=== PATIENT | female | born 1955 | race Caucasian/White ===

== ENCOUNTER 2020-03-18 15:27 | Inpatient (IN) ==
--- NOTE | 2020-03-18 16:10 | Diag Imaging Result Doc PS360 ---
EXAM: CT HEAD W/O CONTRAST HISTORY: AMS TECHNIQUE: CT head without contrast COMPARISON: 02/22/2020 FINDINGS: No parenchymal hemorrhage. No epidural or subdural hematoma. No subarachnoid hemorrhage. No mass identified on this noncontrasted exam. No hydrocephalus. No sinus opacification. IMPRESSION: No hemorrhage. Negative brain CT without contrast. This exam was performed using automated exposure control, adjustment of mA or kV according to patient size, and/or use of iterative reconstruction technique. Electronically signed by Jimenez Marlow 03/18/2020 4:07 PM
[2020-03-18 16:16] LABS: BASO# 0.01 X1000 (0.0-0.2); BASO% 0.1 % (0.0-0.8); EOS# 0.03 X1000 (0.0-0.7); EOS% 0.2 % (0.0-10.0); HEMATOCRIT 48.6 % (37.0-47.0); HEMOGLOBIN 16.2 g/dL (12.0-16.0); IMM GRAN% 0.7 % (0.0-0.5); LYMPH# 1.36 X1000 (1.2-3.4); LYMPH% 9.6 % (20.5-51.1); MCH 32.9 PG (27-31); MCHC 33.3 g/dL (33-37); MCV 98.6 FL (81-99); MONO# 1.72 X1000 (0.11-0.59); MONO% 12.1 % (1.7-9.3); MPV 10.5 FL (7.4-10.4); NEUT% 77.3 % (42.2-75.2); PLT 159 X1000 (130-400); RBC 4.93 XMIL (4.2-5.4); RDW 12.5 % (11.5-14.5); WBC 14.22 X1000 (4.8-10.8)
--- NOTE | 2020-03-18 16:21 | Diag Imaging Result Doc PS360 ---
EXAM: CHEST-1 VIEW HISTORY: cp TECHNIQUE: Single view COMPARISON: 03/04/2020 FINDINGS: The lungs are well expanded. The heart is not enlarged. The vessels are not distended. There are no infiltrates. No effusion identified. IMPRESSION: Negative exam. Electronically signed by Jmienez Marlow 03/18/2020 4:18 PM
[2020-03-18 16:24] LABS: CK INDEX 2.2 (0.0-2.5); CK-MB 18.19 ng/mL (0.0-5.0)
[2020-03-18 16:29] LABS: ALBUMIN 4.2 g/dL (3.5-5.0); CALCIUM 10.6 mg/dL (8.8-10.2); MAGNESIUM 2.8 mg/dL (1.5-2.7); POTASSIUM 4.5 mmol/L (3.5-5.1); TOTAL BILIRUBIN 0.4 mg/dL (0.20-1.00); TOTAL PROTEIN 7.1 g/dL (6.3-8.3)
[2020-03-18 16:40] LABS: FREE T4 1.19 ng/dL (0.93-1.70); TSH 1.37 uIUmL (0.27-4.20)
[2020-03-18 16:50] LABS: URINE SOURCE CATH
[2020-03-18] MEDS ORDERED: NS 1,000 ML IV ONE (16:52)
[2020-03-18 16:54] LABS: BILIRUBIN URINE NEGATIVE (NEGATIVE); BLOOD URINE NEGATIVE (NEGATIVE); COLOR YELLOW; GLUCOSE URINE NEGATIVE (NEGATIVE); KETONE URINE TRACE mg/dL (NEGATIVE); LEUKOCYTES URINE TRACE (NEGATIVE); NITRITE URINE NEGATIVE (NEGATIVE); PROTEIN URINE 30 mg/dL (NEGATIVE); SP GRAVITY URINE 1.018; TURBIDITY URINE HAZY (CLEAR); UROBILINOGEN URINE NORMAL (NORMAL)
[2020-03-18 16:55] LABS: UR EPITHELIAL CELLS <10 /HPF (<10); URINE BACTERIA NEGATIVE /HPF; URINE RBC <10 /HPF (<10); URINE WBC <10 /HPF (<10)
[2020-03-18 17:02] LABS: UR AMPHETAMINES QUAL NONE DETECTED (NONE DETECT); UR BARBITUATES QUAL NONE DETECTED (NONE DETECT); UR BENZODIAZEPIN QUAL NONE DETECTED (NONE DETECT); UR CANNABINOIDS QUAL NONE DETECTED (NONE DETECT); UR COCAINE QUAL NONE DETECTED (NONE DETECT); UR METHADONE QUAL NONE DETECTED (NONE DETECT); UR METHAMPHETAMINE QUAL NONE DETECTED (NONE DETECT); UR OPIATES QUAL NONE DETECTED (NONE DETECT); UR OXYCODONE QUAL NONE DETECTED (NONE DETECT); UR PCP QUAL NONE DETECTED (NONE DETECT); UR PROPOXYPHENE QUAL NONE DETECTED (NONE DETECT); UR TCA QUAL NONE DETECTED (NONE DETECT)
--- NOTE | 2020-03-18 17:38 | EKG Report ---
Test Performed on : 03/18/2020 4:42:34 PM Test Reason : cp Blood Pressure : / mmHG Vent. Rate : 097 BPM Atrial Rate : 097 BPM P-R Int : 126 ms QRS Dur : 084 ms QT Int : 370 ms P-R-T Axes : 043 -27 059 degrees QTc Int : 469 ms Normal sinus rhythm. Nonspecific T wave abnormality Abnormal ECG When compared with ECG of 22-FEB-2020 06:12, (Unconfirmed) T wave inversion now evident in Lateral leads QT has lengthened Unconfirmed Result
--- NOTE | 2020-03-18 17:47 | PROVIDER DOCUMENTATION ---
This chart was entered by Kelli Florian Scribe, acting as scribe for Raul Schultz CRNP. HPI-General Adult - General Chief Complaint: Altered Mental Status Stated Complaint: UNRESPONSIVE/AMS Time Seen by Provider: 03/18/20 15:30 Source: other ([facility] staff) Unable to obtain history due to:: other (pt non verbal) Allergies/Adverse Reactions: Patient Allergies Allergy/AdvReac Type Severity Reaction Status Date / Time No Known Allergies Allergy Verified 02/19/20 22:11 Home Medications: Home Medication List Medication Instructions Recorded Confirmed Last Taken Type Quetiapine Fumarate [Seroquel] 100 mg PO HS PRN 10/01/16 02/22/20 Unknown History Famotidine [Pepcid AC] 1 tab PO DAILY PRN PRN 02/22/20 02/22/20 Unknown History Oseltamivir [Tamiflu] 75 mg PO BID #10 cap 03/04/20 Unknown Rx - History of Present Illness -Gen Adult Nature of Presenting Problems: pt is a 64 yr old female presenting from [facility] with report of increased lethargy, staff reports pt dx with flu 2 weeks ago and since that time has had more "spells" of lethargy, pt has been fever free x 1 week. staff reports pt has been taking her medications as normal. pt hx of non verbal spells. pt follows commands, is alert to self, makes appropriate eye contact but does not speak Similar Symptoms Previously?: Yes Recently seen or treated by another doctor?: Yes Review of Systems - Adult - REVIEW OF SYSTEMS - ADULT ROS:: limited per condition (pt non verbal, report from [facility] staff) Constitutional: reports: see HPI, fatique Eyes: reports: no symptoms reported Ears, Nose, Mouth & Throat: reports: no symptoms reported Cardiovascular: reports: no symptoms reported Respiratory: reports: no symptoms reported. denies: dyspnea on exertion, shortness of breath, wheezing Gastrointestinal: reports: no symptoms reported Genitourinary: reports: no symptoms reported Musculoskeletal: reports: no symptoms reported Integumentary: reports: no symptoms reported Neurological: reports: see HPI, other (non-verbal at times). denies: dizziness/vertigo, headache/migraines Psychiatric: reports: see HPI, anxiety, depression, emotional problems Endocrine: reports: no symptoms reported Hematologic/Lymphatic: reports: no symptoms reported Allergic/Immunologic: reports: no symptoms reported All Other Systems: Reviewed and Negative Past History - Adult - PAST MEDICAL HISTORY-ADULT Review of Records: reports: Old Records Reviewed, Nursing Assessment Review, Medications Reviewed, Social history reviewed & non-contributory. Major Childhood Illnesses: reports: denies history Cardiovascular: reports: denies history Respiratory: reports: denies history Gastrointestinal: reports: denies history, GERD Obstetrical/Gynecological: reports: denies history Genitourinary: reports: denies history Musculoskeletal: reports: denies history Neurological: reports: denies history Psychiatric: reports: bipolar Endocrine/Immune: reports: denies history Other Conditions: reports: denies history - IMMUNIZATION STATUS Childhood Immunizations: See Nurse Assessment Flu Vaccine: See Nurse Assessment - FAMILY HISTORY Family History: reviewed, not pertinent - SOCIAL HISTORY 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[facility]) Physical Exam-General - PHYSICAL EXAM-ADULT Initial Vital Signs Reviewed: Yes - CONSTITUTIONAL General Appearance: alert, no apparent distress, other (non verbal) - EYES Eyes: PERRL/EOMI - HEAD, EARS, NOSE, MOUTH & THROAT HENMT: normocephalic/atraumatic, moist mucous membranes, normal ENT inspection - NECK Neck: non-tender, full range of motion, supple, normal inspection - RESPIRATORY Respiratory: lungs clear, normal breath sounds, no respiratory distress, no accessory muscle use - CARDIOVASCULAR Cardiovascular: normal peripheral pulses, regular rate, rhythm - GASTROINTESTINAL (ABDOMEN) Abdominal Exam: normal bowel sounds, non tender, soft - LYMPHATIC Lymphatic: no adenopathy - MUSCULOSKELETAL Back Exam: normal inspection Extremity: normal range of motion, non-tender, normal inspection - SKIN Integumentary: normal color, normal turgor, warm/dry - NEUROLOGIC Neurologic: grossly normal, no motor/sensory deficits. negative: focal weakness, motor weakness, sensory deficit - PSYCHIATRIC Psych/Mental Status: other (pt is alert to person, non verbal, follows commands) Progress - PLAN OF CARE/RESULTS Result Diagrams: 03/18/20 15:30 03/18/20 15:30 - XRAY 1 XRAY Study: Chest Impression: See EMR Report (FINDINGS: The lungs are well expanded. The heart is not enlarged. The vessels are not distended. There are no infiltrates. No effusion identified. IMPRESSION: Negative exam.) - CT/MRI 1 CT Study: Head Impression: See EMR Report ( FINDINGS: No parenchymal hemorrhage. No epidural or subdural hematoma. No subarachnoid hemorrhage. No mass identified on this noncontrasted exam. No hydrocephalus. No sinus opacification. IMPRESSION: No hemorrhage. Negative brain CT without contrast.) - CONSULTS/PCP/HOSPITALIST Notification #1 *Consult/PCP/Hospitalist*: Dr Ovalle Time Discussed: 17:44 Reason/Comments: AMS, Leukocytosis, ARF Consult Disposition: Admit Departure - Departure Date of Disposition Decision: 03/18/20 Time of Disposition Decision: 17:44 DIAGNOSIS: AMS (altered mental status), Leukocytosis, Acute renal failure (ARF) Disposition: ADMITTED INPATIENT 09 Certified Medical Emergency: Emergent Condition: Critical Additional Instructions: ED Follow Up Instructions: You have been treated by a care provider in the Emergency Department. These instructions are being provided to you so you can have an understanding of how to care for yourself upon discharge. Upon discharge from the Emergency Department, you are responsible for making arrangements for follow-up care by a physician of your choice. Take all prescribed medications as directed. Return to the Emergency Department immediately for any new or worsening symptoms. You may call the Physician Referral phone number at [phone] to obtain a list of Physicians who are taking new patients. Referrals and Follow-Ups: None,PCP [Primary Care Provider] - - Critical Care Note This patient required my direct & personal management of CC.: No Attestation - Physician/ SOFY Attestation Patient care was provided by Advanced Practice Provider:: Yes Advanced Practice Provider:: Raul Schultz Advanced Practice Provider documentation review:: The Mid-level provider documentation, treatment plan and medical decision making was reviewed by the physician who agrees with all treatment and medical decision making by the P. The physician spent face to face time with patient:: Yes Advanced Practice Provider documentation review:: Supervising physician onsite and consulted in the evaluation and care of this patient. The physician did have a face to face encounter with the patient. This chart was documented by the indicated scribe, (Kelli Florian Scribe) and accurately reflects the services I performed and decisions made by me, Raul Schultz CRNP, as attested by the provider's signature.
--- NOTE | 2020-03-18 18:21 | HISTORY AND PHYSICAL ---
PRIMARY CARE PHYSICIAN: Listed as none. CHIEF COMPLAINT: Was found at [facility] with increased lethargy. HISTORY OF PRESENTING ILLNESS: This is a 64-year-old female who presents to [facility] ER from [facility] with reports of increased lethargy staff reported that the patient was diagnosed with the flu 2 weeks ago and had more spells of lethargy but had been fever free for 1 week. Had been taking her medications. Would follow commands, is alert to self and makes appropriate eye contact, but does not speak. It appears on her urine culture from 03/15/2020, she grew out a Proteus mirabilis. Urinalysis at this time is clear. White count of 14.22. Her BUN is 50 with a creatinine of 2, which is an increase slightly from her baseline that appears to be from 1.2 to 1.5. Her creatine kinase was 816, CK-MB of 18.19. Troponin T has a sensitivity of 93. Chest x-ray showed a negative exam. Head CT showed no hemorrhage and a negative brain CT without contrast. So, she will be admitted to the medical unit for further evaluation and treatment. PAST MEDICAL HISTORY: Hypertension and manic depression. PAST SURGICAL HISTORY: None. FAMILY HISTORY: No tobacco alcohol or illicit drug use. ALLERGIES: She has no known drug allergies. HOME MEDICATIONS: We will need to obtain a list, reconcile, review, and restart as appropriate. We will place an order for nursing to update and confirm home medications. LABORATORY DATA: Showed a white blood cell count of 14.22, hemoglobin 16.2, hematocrit 48.6, platelets 159,000. Sodium 136, potassium 4.5, chloride 95, CO2 22, BUN of 50, creatinine 2.0, glucose 106, magnesium 2.8, creatine kinase of 816, CK-MB of 18.19, troponin T high-sensitivity of 93. TSH of 1.37, free T4 1.19. Urinalysis is negative. It is noted she had a urine culture on 03/15/2020 that grew out a Proteus mirabilis. Urine drug screen showed none detected. Valproic acid level of 46.60. Head CT showed no hemorrhage and a negative brain CT without contrast and a chest x-ray that was a negative exam. EKG with normal sinus rhythm at 97. REVIEW OF SYSTEMS: Unable to obtain from patient at this time. PHYSICAL EXAMINATION: This 64-year-old female on arrival had a temperature of 98.1 degrees, pulse 104, respirations 24, blood pressure 110/74. HEENT: Normocephalic, atraumatic. Normal ENT inspection. Oropharynx and nares are clear. EYES: Pupils are equal, round, reactive to light and accommodation. Extraocular movements are intact. NECK: Normal inspection. Normal range of motion. LUNGS: Clear to auscultation bilaterally with equal lung expansion and chest wall movement. HEART: Regular rate and rhythm. No murmurs, rubs, or gallops. ABDOMEN: Soft, nontender, nondistended. Bowel sounds are present x4 quadrants. MUSCULOSKELETAL: She has 5/5 strength x4 extremities. NEUROLOGICAL: The cranial nerves 2-12 appear grossly intact. ASSESSMENT: 1. Altered mental status. 2. An acute on chronic kidney disease. 3. Leukocytosis with a recent Proteus mirabilis urine culture on 03/15/2020. 4. Rhabdomyolysis. PLAN: She will be admitted to the medical unit placed on telemetry, regular diet, Zosyn 3.375 g IV q.6, normal saline at 75 mL an hour, Zofran 4 mg IV q.[address] hours [address]. We will place sequential compression devices for deep vein thrombosis prophylaxis. Update and confirm home medications and we will check serial cardiac enzymes q.8h x3 and recheck a CBC and BMP in the a.m. Further orders after seen by attending. Dictated by ARI Zamora for Jeremy Ovalle MD cc: ARI Zamora MD
--- NOTE | 2020-03-18 18:39 | HISTORY AND PHYSICAL ---
ADDENDUM: Patient was at [facility], had increased lethargy and increased confusion. She was initially given IV fluids in the ER. Does appear to be waking up a little bit better. Recently had a UTI with Proteus mirabilis. We are going to admit to the hospital, place her on fluids. She does have an elevated BUN, mildly increased CK at 800 and an elevated creatinine over her baseline. She is awake but does not answer questions nor follow commands. She is in no current respiratory distress and vital signs reviewed. Please see full note. cc: Jeremy Ovalle MD
[2020-03-18] MEDS ORDERED: TYLENOL PO PRN (21:01)
[2020-03-18] MEDS ORDERED: ZOFRAN IV PRN (21:01)
[2020-03-18] MEDS: ZOSYN 3.375 GM in NS 50 ML IV SCH (22:01)
[2020-03-18] MEDS: NS 1,000 ML IV SCH (22:05)
[2020-03-18 23:08] LABS: CK INDEX 1.7 (0.0-2.5); CK-MB 15.54 ng/mL (0.0-5.0)
[2020-03-19] MEDS: ZOSYN 3.375 GM in NS 50 ML IV SCH ×4 (04:27→21:02)
[2020-03-19 04:54] LABS: BASO# 0.01 X1000 (0.0-0.2); BASO% 0.1 % (0.0-0.8); EOS# 0.03 X1000 (0.0-0.7); EOS% 0.3 % (0.0-10.0); HEMATOCRIT 44.7 % (37.0-47.0); HEMOGLOBIN 14.4 g/dL (12.0-16.0); IMM GRAN# 0.05 X1000 (0.0-0.04); IMM GRAN% 0.5 % (0.0-0.5); LYMPH# 0.43 X1000 (1.2-3.4); LYMPH% 4.3 % (20.5-51.1); MCH 33.1 PG (27-31); MCHC 32.2 g/dL (33-37); MCV 102.8 FL (81-99); MPV 10.5 FL (7.4-10.4); NEUT# 8.53 X1000 (1.4-6.5); NEUT% 84.8 % (42.2-75.2); PLT 87 X1000 (130-400); RBC 4.35 XMIL (4.2-5.4); RDW 12.5 % (11.5-14.5); WBC 10.05 X1000 (4.8-10.8)
[2020-03-19 05:07] LABS: CALCIUM 9.4 mg/dL (8.8-10.2); CREATININE 1.7 mg/dL (0.5-0.9); POTASSIUM 4.5 mmol/L (3.5-5.1)
[2020-03-19 05:26] LABS: CK INDEX 1.4 (0.0-2.5); CK-MB 9.9 ng/mL (0.0-5.0)
[2020-03-19 12:40] LABS: INR 1.08; PROTIME 14.6 Seconds (11.0-16.0)
[2020-03-19 12:51] LABS: ALBUMIN 3.3 g/dL (3.5-5.0); CALCIUM 8.8 mg/dL (8.8-10.2); CREATININE 1.5 mg/dL (0.5-0.9); POTASSIUM 4.1 mmol/L (3.5-5.1); TOTAL BILIRUBIN 0.6 mg/dL (0.20-1.00); TOTAL PROTEIN 5.5 g/dL (6.3-8.3)
[2020-03-19] MEDS: NS 1,000 ML IV SCH (12:52)
[2020-03-19 12:57] LABS: BASO# 0.01 X1000 (0.0-0.2); BASO% 0.1 % (0.0-0.8); EOS# 0.04 X1000 (0.0-0.7); EOS% 0.5 % (0.0-10.0); HEMATOCRIT 42.3 % (37.0-47.0); HEMOGLOBIN 13.4 g/dL (12.0-16.0); IMM GRAN# 0.02 X1000 (0.0-0.04); IMM GRAN% 0.3 % (0.0-0.5); LYMPH# 0.39 X1000 (1.2-3.4); LYMPH% 5.1 % (20.5-51.1); MCH 32.3 PG (27-31); MCHC 31.7 g/dL (33-37); MCV 101.9 FL (81-99); MONO# 0.67 X1000 (0.11-0.59); MONO% 8.8 % (1.7-9.3); MPV 10.3 FL (7.4-10.4); NEUT# 6.52 X1000 (1.4-6.5); NEUT% 85.2 % (42.2-75.2); PLT 117 X1000 (130-400); RBC 4.15 XMIL (4.2-5.4); RDW 12.4 % (11.5-14.5); WBC 7.65 X1000 (4.8-10.8)
[2020-03-19 13:09] LABS: CK INDEX 1.3 (0.0-2.5); CK-MB 6.02 ng/mL (0.0-5.0)
[2020-03-19 13:18] LABS: LYMPHS 8 % (21-51); MONO 5 % (1-9); SEGS 87 % (42-75)
--- NOTE | 2020-03-19 13:27 | PROGRESS NOTE ---
DATE: 03/19/2020 SUBJECTIVE: The patient is a little bit more awake. Reported that she came from [facility] to this hospital . Denies any complaints at this time. OBJECTIVE: Vital Signs: Temperature 98.4, heart rate 98, respiratory rate 20, blood pressure 134/81, O2 saturation 91% on room air. General Examination: This is a chronically ill-looking, 64-year-old, female lying in bed, in no acute distress. Cardiovascular Examination: S1 and S2 heard. No murmurs, gallops, or rubs. Regular rate and rhythm. Respiratory Examination: Clear bilaterally to auscultation. No work of breathing or using accessory muscles. Abdomen: Soft, nontender to palpation. Bowel sounds present. No organomegaly. Extremities: No clubbing, cyanosis, or edema. Peripheral pulses present in both legs. Neurological Examination: The patient is a little bit sleepy but awakes to verbal stimuli. Moves 4 extremities spontaneously. Laboratory Data: White cell count 10.05, hemoglobin 14.4, hematocrit 44.7, platelets 87,000. BMP that reveals creatinine 1.5. ASSESSMENT AND PLAN: 1. Metabolic encephalopathy. The reason is not clear. In any case, it is improving. At this point, we will continue to monitor this patient closely here in the hospital. 2. Acute on chronic kidney disease. Creatinine is improving from 2.2 to 1.7. We will continue to monitor. 3. Urinary tract infection secondary to Proteus. We will continue with current antibiotic management; in this case, it is Zosyn. We will adjust the dose of this medication according to the urine culture. 4. Rhabdomyolysis. We will continue with intravenous fluids. We will continue to monitor CK daily. cc: Pio Rosario MD [facility]
--- NOTE | 2020-03-19 13:36 | Diag Imaging Result Doc PS360 ---
EXAM: CHEST-1 VIEW - 03/19/2020 HISTORY: News bundle standing order TECHNIQUE: Portable one view chest COMPARISON: 03/18/2020 FINDINGS: Heart size appears within normal limits. The lungs appear clear. There is no pleural effusion or pneumothorax identified. IMPRESSION: No evidence of acute disease. Electronically signed by Dion [employer] Medianicholas 03/19/2020 1:33 PM
[2020-03-19 13:57] LABS: CK INDEX 1.3 (0.0-2.5); CK-MB 6.38 ng/mL (0.0-5.0)
--- NOTE | 2020-03-19 16:08 | ED EKG INTERP ---
This chart was entered by Kelli Florian Scribe, acting as scribe for Tammie Kingston MD. EKG Interpretation - EKG Time of EKG reading by physician:: 16:42 EKG Read and Signed by:: Tammie Kingston EKG Interpretation (*Must complete 3 of following elements*): Abnormal Rate: 97 Rhythm: nsr [place]: normal QRS: normal ID Interval: normal ST Wave: non-specific ST changes Attestation - Physician/ SOFY Attestation Patient care was provided by Advanced Practice Provider:: Yes Advanced Practice Provider:: Raul Schultz Advanced Practice Provider documentation review:: The Mid-level provider documentation, treatment plan and medical decision making was reviewed by the physician who agrees with all treatment and medical decision making by the P. The physician spent face to face time with patient:: Yes Advanced Practice Provider documentation review:: Supervising physician onsite and consulted in the evaluation and care of this patient. The physician did have a face to face encounter with the patient. This chart was documented by the indicated scribe, (Kelli Florian Scribe) and accurately reflects the services I performed and decisions made by Thee moctezuma Mai Huu, MD, as attested by the provider's signature.
[2020-03-20] MEDS: NS 1,000 ML IV SCH ×2 (04:15→19:08)
[2020-03-20] MEDS: ZOSYN 3.375 GM in NS 50 ML IV SCH ×4 (04:15→21:45)
[2020-03-20 12:22] LABS: BASO# 0.01 X1000 (0.0-0.2); BASO% 0.1 % (0.0-0.8); EOS# 0.06 X1000 (0.0-0.7); EOS% 0.7 % (0.0-10.0); HEMATOCRIT 46.5 % (37.0-47.0); HEMOGLOBIN 14.8 g/dL (12.0-16.0); IMM GRAN# 0.04 X1000 (0.0-0.04); IMM GRAN% 0.5 % (0.0-0.5); LYMPH# 0.44 X1000 (1.2-3.4); MCH 32.5 PG (27-31); MCHC 31.8 g/dL (33-37); MONO# 0.52 X1000 (0.11-0.59); MONO% 5.9 % (1.7-9.3); MPV 10.2 FL (7.4-10.4); NEUT# 7.73 X1000 (1.4-6.5); NEUT% 87.8 % (42.2-75.2); PLT 97 X1000 (130-400); RBC 4.56 XMIL (4.2-5.4); RDW 12.4 % (11.5-14.5)
[2020-03-20 12:39] LABS: ALBUMIN 3.5 g/dL (3.5-5.0); CALCIUM 9.4 mg/dL (8.8-10.2); CREATININE 1.4 mg/dL (0.5-0.9); PHOSPHORUS 3.3 mg/dL (2.7-4.5); POTASSIUM 4.6 mmol/L (3.5-5.1)
[2020-03-20 13:16] LABS: LYMPHS 5 % (21-51); MONO 6 % (1-9); SEGS 87 % (42-75)
--- NOTE | 2020-03-20 13:36 | PROGRESS NOTE ---
DATE: 03/20/2020 SUBJECTIVE: Patient is a little more awake although she still has confusion. The patient came from [facility] because of encephalopathy. OBJECTIVE: Vital Signs: Temperature 97.9 degrees, heart rate 111, respiratory rate 20, blood pressure 150/83. O2 saturation 97% 2 L nasal cannula. General: This is a chronically ill- looking, 64-year-old female lying in bed, in no acute distress. Cardiovascular: S1, S2 heard. No murmurs, gallops, or rubs. Regular rate and rhythm. Respiratory: Clear bilaterally to auscultation. No work of breathing or using accessory muscles. Abdomen: Soft, nontender to palpation. Bowel sounds present. No organomegaly. Extremities: No clubbing, cyanosis, or edema. Peripheral pulses present in all legs. Neurological: The patient is sleepy but awakes to verbal stimuli. Moves 4 extremities spontaneously. LABORATORY DATA: White cell count 8.8, hemoglobin 14.8, hematocrit 46.5, platelets 97,000 and BMP reveals creatinine of 1.4. Sodium 147. ASSESSMENT/PLAN: 1. Metabolic encephalopathy. I think it is probably related to medication. She is still confused but definitely better in comparing with yesterday. We will continue to monitor this patient closely. 2. Acute on chronic kidney disease. Creatinine continues to improve. Yesterday was 1.72, today is 1.5. We will continue to monitor. 3. Urinary tract infection secondary to Proteus. The urine culture here returned no growth but we will provide 10 days of antibiotics while in the hospital, we will continue with Zosyn. 4. Rhabdomyolysis. We will continue with IV fluids. 5. Physical deconditioning. We will consult PT/OT for this patient. We will see what they have to say. cc: Pio Rosario MD
[2020-03-20] MEDS ORDERED: NS 50 ML ONE (15:25)
[2020-03-21] MEDS: ZOSYN 3.375 GM in NS 50 ML IV SCH ×3 (04:02→16:04)
[2020-03-21 06:21] LABS: BASO# 0.01 X1000 (0.0-0.2); BASO% 0.1 % (0.0-0.8); EOS# 0.06 X1000 (0.0-0.7); EOS% 0.7 % (0.0-10.0); HEMATOCRIT 44.9 % (37.0-47.0); HEMOGLOBIN 14.3 g/dL (12.0-16.0); IMM GRAN# 0.06 X1000 (0.0-0.04); IMM GRAN% 0.7 % (0.0-0.5); LYMPH# 0.47 X1000 (1.2-3.4); LYMPH% 5.1 % (20.5-51.1); MCH 32.3 PG (27-31); MCHC 31.8 g/dL (33-37); MCV 101.4 FL (81-99); MONO# 0.69 X1000 (0.11-0.59); MONO% 7.5 % (1.7-9.3); MPV 10.5 FL (7.4-10.4); NEUT# 7.93 X1000 (1.4-6.5); NEUT% 85.9 % (42.2-75.2); PLT 119 X1000 (130-400); RBC 4.43 XMIL (4.2-5.4); RDW 12.3 % (11.5-14.5); WBC 9.22 X1000 (4.8-10.8)
[2020-03-21 06:24] LABS: ALBUMIN 3.6 g/dL (3.5-5.0); CALCIUM 9.3 mg/dL (8.8-10.2); CREATININE 1.2 mg/dL (0.5-0.9); PHOSPHORUS 3.2 mg/dL (2.7-4.5); POTASSIUM 3.9 mmol/L (3.5-5.1)
[2020-03-21 08:39] LABS: EOS 1 % (1-10); LYMPHS 5 % (21-51); MONO 3 % (1-9); SEGS 91 % (42-75)
[2020-03-21] MEDS: NS 1,000 ML IV SCH (10:32)
--- NOTE | 2020-03-21 12:14 | DISCHARGE SUMMARY ---
ADMISSION DATE: 03/18/2020 DISCHARGE DATE: 03/21/2020 PRIMARY CARE PHYSICIAN: Listed as none. ADMISSION DIAGNOSES: 1. Altered mental status. 2. [id number] kidney disease. 3. Leukocytosis with a recent Proteus mirabilis urine culture on 03/15/2020. 4. Rhabdomyolysis. DISCHARGE DIAGNOSES: 1. Metabolic encephalopathy, improved. 2. Cwwxn-dl-eilmouu kidney disease, improved. 3. Proteus mirabilis urinary tract infection. 4. Rhabdomyolysis, improved. 5. Physical deconditioning. SUMMARY OF FINDINGS: This is a 64-year-old female, who presented to the emergency room from [facility] with reports of increased lethargy, had been diagnosed 2 weeks prior with the flu and had more spells of lethargy but have been fever free for a week, had been taken all her medications, would follow commands and was alert to self, but would not speak. It was noted that her urine culture from 03/15/2020 grew out a Proteus mirabilis. Urinalysis at this time was clear. Her white count was 14.22. She had a creatinine of 2, which was a slight increase from her baseline of 1.2 to 1.5. Creatine kinase of 816. Troponin T high-sensitivity was 93. Chest x-ray was clear. A CT of the brain showed no hemorrhage and a negative brain CT without contrast. She was admitted, placed on Zosyn 3.375 g IV q.6, IV hydration. We checked serial cardiac enzymes. She has improved and it is now felt that she can safely be discharged back to [facility], who has accepted her for readmission there. DISCHARGE MEDICATIONS: Will include Keflex 500 mg p.o. q.8 hours, Blistex medicated huerta balm topically p.r.n., famotidine 10 mg p.o. daily p.r.n., Prolixin 5 mg p.o. at bedtime and 2.5 mg IM b.i.d., lisinopril 20 mg p.o. daily, Milk of Magnesia 30 mL p.o. p.r.n., Stratton-3 with fish oil 1 capsule p.o. at bedtime, Senokot 2 tablets p.o. daily p.r.n., Depakene liquid 250 mg p.o. b.i.d. FOLLOWUP: She will have discharge followup after she has completed her treatment at [facility] and they will set that up at that time. TIME SPENT: A 35 minute discharge. Dictated by ARI Zamora for Pio Rosario MD Addendum: Patient seen and examined by myself. Agree with ARI note. It reflects my assessment and plan. Patient is being discharged in stable condition . Will be seen by psychiatrist at [facility]. cc: ARI Zamora MD [facility]
[2020-03-21 15:42] VITALS: BP 148/68
== END 2020-03-21 16:10 | DRG 92 ==
LOC: P.ED 15:27 → P.MEDSURG 21:57 → SUATTDRO 21:57
PROVIDERS: ATTEND Internal Medicine

== ENCOUNTER 2020-03-21 17:22 | Inpatient (IN) ==
[2020-03-21] MEDS ORDERED: NS 1,000 ML IV ONE (17:27)
[2020-03-21 18:02] LABS: BLOOD TYPE ARTERIAL; HCO3-(ACT) 24.8 mmoll (20.0-26.0); O2(CT) 20.4 mL/dL (15.0-23.0); O2HB 94.8 % (95.0-99.0); PCO2(98.6) 36 mmHg (35-45); PO2(98.6) 79 mmHg (60-100); SAMPLE BLOOD; SAO2 97.6 % (95.0-100.0); THB 15.3 g/dL (11.5-17.4); pH(98.6) 7.43 (7.35-7.45)
[2020-03-21 18:04] LABS: ALLEN TEST YES; MODALITY CANNULA
[2020-03-21 18:26] LABS: URINE SOURCE CATH
[2020-03-21 18:29] LABS: BASO# 0.01 X1000 (0.0-0.2); BASO% 0.1 % (0.0-0.8); EOS# 0.02 X1000 (0.0-0.7); EOS% 0.2 % (0.0-10.0); HEMATOCRIT 46.7 % (37.0-47.0); HEMOGLOBIN 15.1 g/dL (12.0-16.0); IMM GRAN# 0.07 X1000 (0.0-0.04); IMM GRAN% 0.7 % (0.0-0.5); LYMPH# 0.48 X1000 (1.2-3.4); LYMPH% 4.8 % (20.5-51.1); MCH 32.7 PG (27-31); MCHC 32.3 g/dL (33-37); MCV 101.1 FL (81-99); MPV 10.5 FL (7.4-10.4); NEUT% 88.2 % (42.2-75.2); PLT 121 X1000 (130-400); RBC 4.62 XMIL (4.2-5.4); RDW 12.5 % (11.5-14.5); WBC 10.08 X1000 (4.8-10.8)
[2020-03-21 18:37] LABS: UR AMPHETAMINES QUAL NONE DETECTED (NONE DETECT); UR BARBITUATES QUAL NONE DETECTED (NONE DETECT); UR BENZODIAZEPIN QUAL NONE DETECTED (NONE DETECT); UR CANNABINOIDS QUAL NONE DETECTED (NONE DETECT); UR COCAINE QUAL NONE DETECTED (NONE DETECT); UR METHADONE QUAL NONE DETECTED (NONE DETECT); UR METHAMPHETAMINE QUAL NONE DETECTED (NONE DETECT); UR OPIATES QUAL NONE DETECTED (NONE DETECT); UR OXYCODONE QUAL NONE DETECTED (NONE DETECT); UR PCP QUAL NONE DETECTED (NONE DETECT); UR PROPOXYPHENE QUAL NONE DETECTED (NONE DETECT); UR TCA QUAL NONE DETECTED (NONE DETECT)
[2020-03-21 18:44] LABS: INR 1.13; PROTIME 15.1 Seconds (11.0-16.0)
--- NOTE | 2020-03-21 18:44 | PROVIDER DOCUMENTATION ---
This chart was entered by Guillermina Wynne Scribe, acting as scribe for Tammie Kingston MD. HPI-General Adult <Levon Rodas - Last Filed: 03/21/20 19:53> - General Source: EMS - History of Present Illness -Gen Adult Nature of Presenting Problems: pt is a 64 yowf presenting w/ems w/cc pt was d/c to [facility] 1 hr ago from ICU and upon arrival to [facility], pt had fever, tachypnic, tachycardia and HTN. EMS was called to [facility] to take pt to er. Pt was dx w/ rhabdo. On arrival, pt having trouble responding. Location of Pain/Injury: reports: none Pain Radiation: reports: no radiation Quality of Pain: reports: none Severity: reports: mild Onset/Duration: reports: just prior to arrival Timing: reports: still present Context/Activities at Onset: reports: none Modifying Factors: improves with: nothing Associated Symptoms: reports: fever/chills (fever), other (tachypnic, tachycardic, and HTN) Similar Symptoms Previously?: Yes Recently seen or treated by another doctor?: Yes <Tammie Kingston - Last Filed: 03/29/20 07:35> - General Stated Complaint: fever and HTN Time Seen by Provider: 03/21/20 17:21 Allergies/Adverse Reactions: Patient Allergies Allergy/AdvReac Type Severity Reaction Status Date / Time No Known Allergies Allergy Verified 03/26/20 04:47 Home Medications: Home Medication List Medication Instructions Recorded Confirmed Last Taken Type Famotidine [Pepcid AC] 1 tab PO DAILY PRN PRN 02/22/20 03/26/20 03/18/20 History Dimethicone/Oxybenzone [place] 1 applicatn TOP PRN PRN 03/18/20 03/26/20 Unknown H istory [Blistex Medicated [place]] Fluphenazine HCl [Prolixin] 2.5 mg IM BID 03/18/20 03/26/20 Unknown History Fluphenazine [Prolixin] 1 tab PO QHS 03/18/20 03/26/20 03/17/20 History Lisinopril 1 tab PO DAILY 03/18/20 03/26/20 03/18/20 History Magnesium Hydroxide [Milk of 30 ml PO PRN PRN 03/18/20 03/26/20 Unknown History Magnesia] Dillon-3 Fatty Acids/Fish Oil 1 cap PO QHS 03/18/20 03/26/20 03/17/20 History [Dillon 3 1,000 mg Softgel] Sennosides [Senokot] 2 tab PO DAILY PRN 03/18/20 03/26/20 Unknown History Valproic Acid [Depakene Liquid] 250 mg PO BID 03/18/20 03/26/20 03/18/20 History Cephalexin [Keflex] 1 cap PO Q12H 03/26/20 03/26/20 Unknown History Review of Systems - Adult - REVIEW OF SYSTEMS - ADULT Constitutional: reports: see HPI, fever. denies: fatique, night sweats Eyes: reports: no symptoms reported Ears, Nose, Mouth & Throat: reports: no symptoms reported Cardiovascular: reports: see HPI, irregular heart rate. denies: chest pain, edema, palpitations Respiratory: reports: see HPI, other (tachypnic). denies: cough, dyspnea on exertion, excessive sputum production Gastrointestinal: reports: no symptoms reported Genitourinary: reports: no symptoms reported Musculoskeletal: reports: no symptoms reported Integumentary: reports: no symptoms reported Neurological: reports: see HPI, other (trouble responding to questions). denies: dizziness/vertigo, headache/migraines, slurred speech Psychiatric: reports: no symptoms reported Endocrine: reports: no symptoms reported Hematologic/Lymphatic: reports: no symptoms reported Allergic/Immunologic: reports: no symptoms reported All Other Systems: Reviewed and Negative <Tammie Kingston - Last Filed: 03/29/20 07:35> Past History - Adult - PAST MEDICAL HISTORY-ADULT Review of Records: reports: Nursing Assessment Review, Medications Reviewed, Social history reviewed & non-contributory. Major Childhood Illnesses: reports: denies history Cardiovascular: reports: HTN Respiratory: reports: denies history Gastrointestinal: reports: denies history Obstetrical/Gynecological: reports: denies history Genitourinary: reports: kidney disease Musculoskeletal: reports: denies history Neurological: reports: denies history Psychiatric: reports: depression (manic depression), schizophrenia Endocrine/Immune: reports: denies history Other Conditions: reports: denies history - PRIOR SURGERIES/PROCEDURES Surgical/Procedure History: reports: colonoscopy - IMMUNIZATION STATUS Childhood Immunizations: See Nurse Assessment Flu Vaccine: See Nurse Assessment - FAMILY HISTORY Family History: reviewed, not pertinent - SOCIAL HISTORY Smoking: non-smoker Substance Use: none/never <Tammie Kingston - Last Filed: 03/29/20 07:35> Physical Exam-General - PHYSICAL EXAM-ADULT Initial Vital Signs Reviewed: Yes - CONSTITUTIONAL General Appearance: mild distress, slow to respond, obtunded. negative: appears well, alert, no apparent distress, anxious, combative - EYES Eyes: PERRL/EOMI - HEAD, EARS, NOSE, MOUTH & THROAT HENMT: normocephalic/atraumatic, moist mucous membranes - NECK Neck: non-tender, full range of motion, supple, normal inspection - RESPIRATORY Respiratory: chest non-tender, normal breath sounds, other (tachypnic). negative: lungs clear - CARDIOVASCULAR Cardiovascular: normal peripheral pulses, no edema, no gallop, no JVD, no murmur , tachycardia. negative: regular rate, rhythm, extra beats, friction rub, irregularly irregular - GASTROINTESTINAL (ABDOMEN) Abdominal Exam: non tender, soft - MUSCULOSKELETAL Back Exam: normal inspection Extremity: normal range of motion, non-tender, normal inspection - SKIN Integumentary: normal color, normal turgor, warm/dry - NEUROLOGIC Neurologic: no motor/sensory deficits, other (mumbles when asked questions but can respond) - PSYCHIATRIC Psych/Mental Status: other (mumbling, slightly disoriented). negative: normal mood/affect, normal thought content, normal thought process <Tammie Kingston - Last Filed: 03/29/20 07:35> Progress - PLAN OF CARE/RESULTS Progress/Plan/Lab Results: Vital Signs - 8 hr 03/21/20 17:26 03/21/20 18:00 03/21/20 18:45 Temperature 98.1 F Pulse Rate 109 H 101 H Respiratory Rate 25 H 22 Blood Pressure 161/98 171/105 O2 Sat by Pulse Oximetry 91 L 95 96 03/21/20 19:04 Temperature 100.1 F H Pulse Rate Respiratory Rate Blood Pressure O2 Sat by Pulse Oximetry Laboratory Results - last 24 hr 03/21/20 03/21/20 03/21/20 17:45 17:50 17:50 WBC RBC Hgb Hct MCV MCH MCHC RDW Std Deviation Plt Count MPV Immature Gran % (Auto) Neut % (Auto) Lymph % (Auto) [place] % (Auto) Eos % (Auto) Baso % (Auto) Immature Gran # (Auto) Neut # (Auto) Lymph # (Auto) [place] # (Auto) Eos # (Auto) Baso # (Auto) PT INR PTT (Actin FS) Specimen Type ARTERIAL Sample Site R RADIAL pH 7.43 pCO2 36 pO2 79 HCO3 24.8 Base Excess 0.0 Oxyhemoglobin 94.8 L ABG O2 Sat (Calculated) 20.4 ABG O2 Saturation 97.6 ABG Carboxyhemoglobin 1.90 ABG Methemoglobin 1.0 Kuldip Test YES A-a O2 Difference 104.0 Total Hemoglobin 15.3 Lactate 1.50 Liter Flow 3.0 Blood Gas Modality CANNULA FiO2 % 32.0 Sodium Potassium Chloride Carbon Dioxide Anion Gap BUN Creatinine Estimated GFR/1.73 m2 BUN/Creatinine Ratio Glucose POC Glucose Calculated Osmolality Calcium Total Bilirubin AST ALT Alkaline Phosphatase Creatine Kinase Troponin T High Sens Slf-F-Ndoyrsqyqar Pept Total Protein Albumin Globulin Albumin/Globulin Ratio Plasma Lactate Urine Source CATH Urine Color YELLOW Urine Clarity CLEAR Urine pH 6.5 Ur Specific [place] 1.015 Urine Protein TRACE A Urine Ketones TRACE A Urine Blood SMALL A Urine Nitrite NEGATIVE Urine Bilirubin NEGATIVE Urine Urobilinogen 0.2 Urine Microscopic RBC <10 Urine WBC NEGATIVE Urine Microscopic WBC <10 Ur Epithelial Cells <10 Urine Crystals NONE SEEN Urine Bacteria 1+ Urine Casts GRANULAR PRESENT Urine Yeast NONE SEEN Urine Glucose NEGATIVE Urine Opiates Screen NONE DETECTED Ur Oxycodone Screen NONE DETECTED Urine Methadone Screen NONE DETECTED U Propoxyphene Qual NONE DETECTED Ur Barbituates Screen NONE DETECTED Ur Tricyclics Screen NONE DETECTED Ur Phencyclidine Scrn NONE DETECTED Ur Amphetamines Screen NONE DETECTED U Methamphetamines Scrn NONE DETECTED U Benzodiazepines Scrn NONE DETECTED Urine Cocaine Screen NONE DETECTED U Cannabinoids Screen NONE DETECTED 03/21/20 03/21/20 03/21/20 18:04 18:04 18:04 WBC 10.08 RBC 4.62 Hgb 15.1 Hct 46.7 MCV 101.1 H MCH 32.7 H MCHC 32.3 L RDW Std Deviation 12.5 Plt Count 121 L MPV 10.5 H Immature Gran % (Auto) 0.7 H Neut % (Auto) 88.2 H Lymph % (Auto) 4.8 L [place] % (Auto) 6.0 Eos % (Auto) 0.2 Baso % (Auto) 0.1 Immature Gran # (Auto) 0.07 H Neut # (Auto) 8.90 H Lymph # (Auto) 0.48 L [place] # (Auto) 0.60 H Eos # (Auto) 0.02 Baso # (Auto) 0.01 PT INR PTT (Actin FS) Specimen Type Sample Site pH pCO2 pO2 HCO3 Base Excess Oxyhemoglobin ABG O2 Sat (Calculated) ABG O2 Saturation ABG Carboxyhemoglobin ABG Methemoglobin Kuldip Test A-a O2 Difference Total Hemoglobin Lactate Liter Flow Blood Gas Modality FiO2 % Sodium 152 H Potassium 4.1 Chloride 114 H Carbon Dioxide 23 L Anion Gap 15 BUN 30 H Creatinine 1.3 H Estimated GFR/1.73 m2 41 BUN/Creatinine Ratio 23 Glucose 128 H POC Glucose Calculated Osmolality 310 Calcium 9.8 Total Bilirubin 0.60 AST 30 ALT 29 Alkaline Phosphatase 89 Creatine Kinase 116 Troponin T High Sens 34 H Kjx-E-Aowlcjvkcwy Pept Total Protein 6.6 Albumin 4.0 Globulin 3.0 Albumin/Globulin Ratio 2.0 Plasma Lactate Urine Source Urine Color Urine Clarity Urine pH Ur Specific [place] Urine Protein Urine Ketones Urine Blood Urine Nitrite Urine Bilirubin Urine Urobilinogen Urine Microscopic RBC Urine WBC Urine Microscopic WBC Ur Epithelial Cells Urine Crystals Urine Bacteria Urine Casts Urine Yeast Urine Glucose Urine Opiates Screen Ur Oxycodone Screen Urine Methadone Screen U Propoxyphene Qual Ur Barbituates Screen Ur Tricyclics Screen Ur Phencyclidine Scrn Ur Amphetamines Screen U Methamphetamines Scrn U Benzodiazepines Scrn Urine Cocaine Screen U Cannabinoids Screen 03/21/20 03/21/20 03/21/20 18:04 18:04 18:04 WBC RBC Hgb Hct MCV MCH MCHC RDW Std Deviation Plt Count MPV Immature Gran % (Auto) Neut % (Auto) Lymph % (Auto) [place] % (Auto) Eos % (Auto) Baso % (Auto) Immature Gran # (Auto) Neut # (Auto) Lymph # (Auto) [place] # (Auto) Eos # (Auto) Baso # (Auto) PT 15.1 INR 1.13 PTT (Actin FS) 25.5 Specimen Type Sample Site pH pCO2 pO2 HCO3 Base Excess Oxyhemoglobin ABG O2 Sat (Calculated) ABG O2 Saturation ABG Carboxyhemoglobin ABG Methemoglobin Kuldip Test A-a O2 Difference Total Hemoglobin Lactate Liter Flow Blood Gas Modality FiO2 % Sodium Potassium Chloride Carbon Dioxide Anion Gap BUN Creatinine Estimated GFR/1.73 m2 BUN/Creatinine Ratio Glucose POC Glucose Calculated Osmolality Calcium Total Bilirubin AST ALT Alkaline Phosphatase Creatine Kinase Troponin T High Sens Syn-B-Nzddcmztudk Pept 2663 H Total Protein Albumin Globulin Albumin/Globulin Ratio Plasma Lactate 1.2 Urine Source Urine Color Urine Clarity Urine pH Ur Specific [place] Urine Protein Urine Ketones Urine Blood Urine Nitrite Urine Bilirubin Urine Urobilinogen Urine Microscopic RBC Urine WBC Urine Microscopic WBC Ur Epithelial Cells Urine Crystals Urine Bacteria Urine Casts Urine Yeast Urine Glucose Urine Opiates Screen Ur Oxycodone Screen Urine Methadone Screen U Propoxyphene Qual Ur Barbituates Screen Ur Tricyclics Screen Ur Phencyclidine Scrn Ur Amphetamines Screen U Methamphetamines Scrn U Benzodiazepines Scrn Urine Cocaine Screen U Cannabinoids Screen 03/21/20 19:00 WBC RBC Hgb Hct MCV MCH MCHC RDW Std Deviation Plt Count MPV Immature Gran % (Auto) Neut % (Auto) Lymph % (Auto) [place] % (Auto) Eos % (Auto) Baso % (Auto) Immature Gran # (Auto) Neut # (Auto) Lymph # (Auto) [place] # (Auto) Eos # (Auto) Baso # (Auto) PT INR PTT (Actin FS) Specimen Type Sample Site pH pCO2 pO2 HCO3 Base Excess Oxyhemoglobin ABG O2 Sat (Calculated) ABG O2 Saturation ABG Carboxyhemoglobin ABG Methemoglobin Kuldip Test A-a O2 Difference Total Hemoglobin Lactate Liter Flow Blood Gas Modality FiO2 % Sodium Potassium Chloride Carbon Dioxide Anion Gap BUN Creatinine Estimated GFR/1.73 m2 BUN/Creatinine Ratio Glucose POC Glucose 103 Calculated Osmolality Calcium Total Bilirubin AST ALT Alkaline Phosphatase Creatine Kinase Troponin T High Sens Zab-M-Xemcetzkmgx Pept Total Protein Albumin Globulin Albumin/Globulin Ratio Plasma Lactate Urine Source Urine Color Urine Clarity Urine pH Ur Specific [place] Urine Protein Urine Ketones Urine Blood Urine Nitrite Urine Bilirubin Urine Urobilinogen Urine Microscopic RBC Urine WBC Urine Microscopic WBC Ur Epithelial Cells Urine Crystals Urine Bacteria Urine Casts Urine Yeast Urine Glucose Urine Opiates Screen Ur Oxycodone Screen Urine Methadone Screen U Propoxyphene Qual Ur Barbituates Screen Ur Tricyclics Screen Ur Phencyclidine Scrn Ur Amphetamines Screen U Methamphetamines Scrn U Benzodiazepines Scrn Urine Cocaine Screen U Cannabinoids Screen Orders Category Date Time Status NEWS Score >or=5:Order NEWS Bundle S.O. NOW Care 03/21/20 17:32 Active Notify Provider of NEWS Score NOW Care 03/21/20 17:33 Active Saline Loc NOW Care 03/21/20 17:25 Active CHEST-PORTABLE [RAD] Stat Exams 03/21/20 17:[address] HEAD W/O CONTRAST [CT] Stat Exams 03/21/20 17:44 Taken ABG [RESP] Routine Lab 03/21/20 17:45 Completed BLOOD CULTURE [BLDCUL] Stat Lab 03/21/20 18:11 Ordered CBC WITH DIFF [HEME] Stat Lab 03/21/20 18:04 Completed CK PROFILE [SP CHEM] Stat Lab 03/21/20 18:04 Completed COMPREHENSIVE METABOLIC PANEL [CHEM] Stat Lab 03/21/20 18:04 Completed LACTATE, PLASMA [CHEM] Lab 03/21/20 18:04 Completed LACTATE, PLASMA [CHEM] Lab 03/21/20 20:45 Uncollected LACTATE, PLASMA [CHEM] Lab 03/21/20 23:45 Uncollected MAGNESIUM [CHEM] Stat Lab 03/21/20 18:04 Received PRO B-NATRIURETIC PEPTIDE Stat Lab 03/21/20 18:04 Completed PROTIME WITH INR [COAG] Stat Lab 03/21/20 18:04 Completed PTT [COAG] Stat Lab 03/21/20 18:04 Completed TROPONIN T HIGH SENSITIVITY Stat Lab 03/21/20 18:04 Completed TSH Stat Lab 03/21/20 18:04 Received URINE CULTURE [RM] Routine Lab 03/21/20 19:06 Ordered URINE DRUG SCREEN PL Stat Lab 03/21/20 17:50 Completed 0.9% Sodium Chloride Inj [Ns] 1,000 ml Med 03/21/20 17:27 Discontinued IV 999 mls/hr Labetalol Med 03/21/20 19:15 Discontinued 10 mg IV NOW ONE Lorazepam [Ativan] Med 03/21/20 19:08 Discontinued 1 mg IV NOW ONE Metoprolol [Lopressor] Med 03/21/20 19:11 Discontinued 5 mg IV NOW ONE Pulse Oximetry Stat Oth 03/21/20 17:25 Active EKG [EKG] Stat Ther 03/21/20 17:25 Ordered Result Diagrams: 03/21/20 18:04 03/21/20 18:04 - REASSESSMENT Reassessment #4 Time Reassessed: 19:15 Status: worsening Reassessment Comment: additional SVT episodes, given labetolol Reassessment #5 Time Reassessed: 19:34 Status: improving Reassessment Comment: heart rate is controlled after IV Labetolol and Ativan 6 Time Reassessed: 19:50 Status: improving Reassessment Comment: patient is more alert and talking - EKG 1 Time of EKG reading by physician:: 18:38 EKG Read and Signed by:: Tammie Kingston Rate: 101 Rhythm: sinus tach MN Interval: normal ST Wave: non-specific ST changes 2 Time of EKG reading by physician:: 19:22 EKG Read and Signed by:: Levon Rodas Rate: 161 Rhythm: SVT QRS: NSIVCD Comments: no STEMI 3 Time of EKG reading by physician:: 19:33 EKG Read and Signed by:: Levon Rodas Rate: 75 Rhythm: NSR ST Wave: non-specific ST changes Comments: no STEMI - CONSULTS/PCP/HOSPITALIST Notification Reason/Comments: recommend transfer to [facility] for cardiology consultation <Levon Rodas - Last Filed: 03/21/20 19:53> - PLAN OF CARE/RESULTS Result Diagrams: 03/25/20 07:25 03/25/20 07:17 - REASSESSMENT Reassessment #1 Time Reassessed: 17:37 Status: other (RN sts after speaking to [facility], pt pretends to be catatonic.) Reassessment #2 Time Reassessed: 18:30 Status: worsening (SVT with HR above 200 on the monitor) Reassessment #3 Time Reassessed: 19:01 Status: worsening (Pt had another episode of HR over 200 in room) - CT/MRI 1 CT Study: Head Impression: See EMR Report ( EXAM: CT HEAD W/O CONTRAST INDICATION: slurred speech TECHNIQUE: This exam was performed using automated exposure control, adjustment of mA or kV according to patient size, and/or use of iterative reconstruction technique. COMPARISON: 03/18/2020 FINDINGS: There is mild patchy low attenuation in the periventricular white matter suggesting mild microangiopathy, stable. There is no definite acute infarct given the limited sensitivity of CT versus MRI. There is no discrete intracranial mass, mass effect, or intracranial hemorrhage. The surrounding soft tissues and bony structures are essentially unremarkable. IMPRESSION: Stable mild periventricular white matter microangiopathy. No evidence of acute intracranial pathology by CT. Electronically signed by Augustus Wynne 03/21/2020 7:26 PM) - CONSULTS/PCP/HOSPITALIST Notification #1 *Consult/PCP/Hospitalist*: Dr. Harris Time Discussed: 19:23 Consult Disposition: Admit #2 Consult: Dr. Haynes/Lakesha [facility] Hospitalist Time Discussed: 19:29 Consult Disposition: Admit (Will admit to M) - CHANGE OF SHIFT REPORT (ED Provider) 1 Report Given and Care Transferred to:: Dr Rodas Time of Transfer: 19:00 Items Pending: Labs, CT/MRI Results (call hospitalist for admission for nonsustained SVT, and Seizure) <Tammie Kingston - Last Filed: 03/29/20 07:35> Departure - Departure Certified Medical Emergency: Emergent - Critical Care Note This patient required my direct & personal management of CC.: Yes Total Time (mins): 35 Critical Care Statement: This patient required my direct personal management to treat or rule out processes, the absence of which, could potentiallly result in sudden, clinically significant life or limb threatening deterioration. <Levon Rodas - Last Filed: 03/21/20 19:53> - Departure Date of Disposition Decision: 03/21/20 Time of Disposition Decision: 21:20 Certified Medical Emergency: Emergent <Tammie Kingston - Last Filed: 03/29/20 07:35> - Departure DIAGNOSIS: SVT (supraventricular tachycardia), Schizoaffective disorder, bipolar type Altered mental status Qualifiers: Altered mental status type: unspecified Qualified Code(s): R41.82 - Altered mental status, unspecified Disposition: ADMITTED INPATIENT 09 Condition: Stable Attestation - Physician/ SOFY Attestation Patient care was provided by Advanced Practice Provider:: No The physician spent face to face time with patient:: Yes Advanced Practice Provider documentation review:: Supervising physician onsite and consulted in the evaluation and care of this patient. The physician did have a face to face encounter with the patient. <Tammie Kingston - Last Filed: 03/29/20 07:35> This chart was documented by the indicated scribe, (Guillermina Wynne Scribe) and accurately reflects the services I performed and decisions made by me, Tammie Kingston MD, as attested by the provider's signature.
[2020-03-21 18:45] LABS: PTT 25.5 Seconds (22.3-41.8)
[2020-03-21 18:50] LABS: CALCIUM 9.8 mg/dL (8.8-10.2); CREATININE 1.3 mg/dL (0.5-0.9); POTASSIUM 4.1 mmol/L (3.5-5.1); TOTAL BILIRUBIN 0.6 mg/dL (0.20-1.00); TOTAL PROTEIN 6.6 g/dL (6.3-8.3)
[2020-03-21 19:04] LABS: URINE RBC <10 /HPF (<10); URINE WBC <10 /HPF (<10)
[2020-03-21 19:05] LABS: BILIRUBIN URINE NEGATIVE (NEGATIVE); BLOOD URINE SMALL (NEGATIVE); CLARITY CLEAR (CLEAR); COLOR YELLOW; GLUCOSE URINE NEGATIVE (NEGATIVE); KETONE URINE TRACE mg/dL (NEGATIVE); PH URINE 6.5; PROTEIN URINE TRACE mg/dL (NEGATIVE); SP GRAVITY URINE 1.015; URINE BACTERIA 1+ /HFP; URINE CAST GRANULAR PRESENT /LPF; URINE CRYSTAL NONE SEEN /HPF; URINE EPITHELIAL CELLS <10 /HPF (<10); URINE YEAST NONE SEEN /HPF
[2020-03-21 19:06] LABS: LEUKOCYTES URINE NEGATIVE (NEGATIVE); NITRITE URINE NEGATIVE (NEGATIVE); UROBILINOGEN URINE 0.2 EU/dL (0.2-1.0)
[2020-03-21] MEDS ORDERED: ATIVAN IV ONE (19:08)
[2020-03-21] MEDS ORDERED: LOPRESSOR IV ONE (19:11)
[2020-03-21] MEDS ORDERED: LABETALOL IV ONE (19:15)
--- NOTE | 2020-03-21 19:28 | Diag Imaging Result Doc PS360 ---
EXAM: CT HEAD W/O CONTRAST INDICATION: slurred speech TECHNIQUE: This exam was performed using automated exposure control, adjustment of mA or kV according to patient size, and/or use of iterative reconstruction technique. COMPARISON: 03/18/2020 FINDINGS: There is mild patchy low attenuation in the periventricular white matter suggesting mild microangiopathy, stable. There is no definite acute infarct given the limited sensitivity of CT versus MRI. There is no discrete intracranial mass, mass effect, or intracranial hemorrhage. The surrounding soft tissues and bony structures are essentially unremarkable. IMPRESSION: Stable mild periventricular white matter microangiopathy. No evidence of acute intracranial pathology by CT. Electronically signed by Augustus Wynne 03/21/2020 7:26 PM
[2020-03-21] MEDS ORDERED: CARDIZEM PO ONE (19:35)
[2020-03-21] MEDS ORDERED: CARDIZEM PO SCH (20:00)
--- NOTE | 2020-03-21 20:00 | Diag Imaging Result Doc PS360 ---
EXAM: CHEST-PORTABLE INDICATION: cough TECHNIQUE: One view COMPARISON: 03/19/2020 FINDINGS: The lungs are grossly clear. There is no discrete pleural fluid collection or pneumothorax. The cardiomediastinal silhouette and central vasculature are grossly unremarkable. IMPRESSION: No evidence of acute pathology by plain radiograph. Electronically signed by Augustus Wynne 03/21/2020 7:57 PM
[2020-03-21] MEDS: TYLENOL PO PRN (20:02)
[2020-03-21] MEDS: 1/2 NS 1,000 ML IV SCH (22:40)
--- NOTE | 2020-03-21 23:19 | HISTORY AND PHYSICAL ---
PRIMARY CARE PROVIDER: Carl Plascencia. CHIEF COMPLAINT: Heart racing, fever. HISTORY OF PRESENTING ILLNESS: This is a 64-year-old female who apparently was discharged from the hospital to [facility] earlier today. However, when she went there patient had fever and was tachypneic and tachycardic. She was returned back to the emergency department where she was found to be in SVT. She was given Cardizem and her rate had improved. She was initially admitted, seen in [facility] and due to lack of subspecialist care she was transferred to [facility] for further evaluation and management. At the time of my examination, patient is somewhat slow but responsive. She denied any chest pain, shortness of breath, hemoptysis, melena or any weight changes. PAST MEDICAL HISTORY: Includes hypertension, depression. PAST SURGICAL HISTORY: None. ALLERGIES: No known drug allergies. CURRENT MEDICATIONS: Include famotidine 10 mg p.o. daily, Prolixin 5 mg p.o. at bedtime, lisinopril 20 mg p.o. daily, valproic acid 250 mg p.o. b.i.d. SOCIAL HISTORY: No history of smoking, alcohol or illicit drug use. FAMILY HISTORY: Positive for coronary artery disease in mother. REVIEW OF SYSTEMS: Fourteen-point review of systems as listed in HPI. Other systems negative. PHYSICAL EXAMINATION: GENERAL: Cooperative, friendly female. She is resting comfortably now. VITAL SIGNS: Temperature 97.3 degrees, pulse 76, respirations 24, blood pressure 115/68. HEENT: Atraumatic, normocephalic. Extraocular movements intact. PERRLA. NECK: No masses. CHEST: Clear to auscultation. CARDIOVASCULAR: Regular rate and rhythm. ABDOMEN: Soft, positive bowel sounds. EXTREMITIES: No edema. NEUROLOGIC: She is awake, alert, oriented x2. GENITOURINARY: No bladder distention. SKIN: Warm. LABORATORIES AND STUDIES: WBCs 10.08, hemoglobin 15.1, hematocrit 46.7, platelets 121,000. Sodium 152, potassium 4.1, chloride 114, CO2 is 23, BUN is 30, creatinine is 1.3, glucose is 128. ASSESSMENT: This is a 64-year-old female with a history of hypertension, depression, who apparently was hospitalized at [facility] and was then discharged to [facility]. She had been treated for rhabdomyolysis while she was at [facility]. However, when patient went to [facility] she became tachycardic and tachypneic. She was returned back to the ER at [facility] where she was found to be in SVT. She was given Cardizem and she converted back to sinus rhythm. However, due to lack of subspecialist care there she was transferred to [facility] for further evaluation and management. 1. Supraventricular tachycardia, now normal sinus rhythm. 2. Hypertension. 3. Depression. PLAN: 1. Patient is admitted to medical floor with telemetry. 2. We will consult Cardiology. 3. We will monitor blood pressure closely. 4. Restart other home medications. 5. She is mildly hyponatremic. We will increase free water. 6. We will use SCDs for DVT prophylaxis. 7. We will continue to follow, reassess, make further recommendation based on patient's clinical course. cc: Addi Haynes MD MTDD
[2020-03-22 07:32] LABS: BASO# 0.01 X1000 (0.0-0.2); BASO% 0.1 % (0.0-0.8); EOS# 0.06 X1000 (0.0-0.7); EOS% 0.8 % (0.0-10.0); HEMATOCRIT 41.9 % (37.0-47.0); HEMOGLOBIN 13.3 g/dL (12.0-16.0); IMM GRAN# 0.04 X1000 (0.0-0.04); IMM GRAN% 0.5 % (0.0-0.5); LYMPH# 0.45 X1000 (1.2-3.4); LYMPH% 5.7 % (20.5-51.1); MCH 32.2 PG (27-31); MCHC 31.7 g/dL (33-37); MCV 101.5 FL (81-99); MONO# 0.58 X1000 (0.11-0.59); MONO% 7.3 % (1.7-9.3); MPV 9.7 FL (7.4-10.4); NEUT# 6.76 X1000 (1.4-6.5); NEUT% 85.6 % (42.2-75.2); PLT 116 X1000 (130-400); RBC 4.13 XMIL (4.2-5.4); RDW 12.7 % (11.5-14.5)
[2020-03-22 08:18] LABS: CALCIUM 9.2 mg/dL (8.8-10.2); CREATININE 1.1 mg/dL (0.5-0.9)
[2020-03-22 08:41] LABS: BANDS 2 % (0-1); LYMPHS 12 % (21-51); MONO 10 % (1-9); SEGS 74 % (42-75)
[2020-03-22] MEDS: 1/2 NS 1,000 ML IV SCH (09:45)
--- NOTE | 2020-03-22 10:58 | EKG Report ---
Test Performed on : 03/21/2020 6:38:33 PM Test Reason : tachycardia Blood Pressure : / mmHG Vent. Rate : 101 BPM Atrial Rate : 101 BPM P-R Int : 130 ms QRS Dur : 088 ms QT Int : 324 ms P-R-T Axes : 071 -34 003 degrees QTc Int : 420 ms Sinus tachycardia. Left axis deviation T wave abnormality, consider anterior ischemia Abnormal ECG When compared with ECG of 18-MAR-2020 16:42, (Unconfirmed) Nonspecific T wave abnormality now evident in Inferior leads T wave inversion more evident in Anterior leads T wave inversion less evident in Lateral leads QT has shortened Unconfirmed Result
--- NOTE | 2020-03-22 14:34 | CONSULTATION ---
DATE OF CONSULTATION: 03/22/2020 IMPRESSION: 1. Reported transient episode of "supraventricular tachycardia", not recorded. At the same time, patient reportedly appeared to possibly have seizure. ECGs all demonstrate sinus rhythm, and recent telemetry also shows sinus rhythm with no arrhythmias. Patient not aware of any previous cardiac problems. Denies any chest discomfort or palpitations. 2. Altered mental status, probably multifactorial. She presently has hypernatremia and may have a component of metabolic encephalopathy. 3. Recent febrile illness with reported urinary tract infection. 4. Bipolar disorder with recent marlen and psychosis. 5. Hypertension. RECOMMENDATIONS: 1. Monitor on telemetry. 2. Echocardiography. 3. Consider further management depending on manifestations of any SVT. HISTORY: This 64-year-old white female with past history of bipolar disorder, recent urinary tract infection, recent marlen with psychosis, was admitted on transfer from [facility] emergency room for transient SVT on monitor, not recorded on ECG. She appears to have been hospitalized either at [facility] unit or [place] over the past 30 days fairly consistently. She has had problems with altered mental status, metabolic encephalopathy, marlen with psychosis, and hypertension. She has also had problems with acute febrile illness with associated urinary tract infection. She also was positive for influenza B last month and treated with Tamiflu. She was recently hospitalized at [facility] with acute on chronic renal dysfunction associated with encephalopathy. Baseline creatinine is 1.5, had risen to 2 with significantly elevated BUN. She was treated with hydration and conservatively. She went back to [facility] for further care and reportedly developed fever and some tachycardia. She was sent back over to [facility] emergency room. She manifested altered mental status. While monitored on telemetry, she reportedly was observed to demonstrate transient SVT although all of her electrocardiograms shows sinus rhythm. There is also mention of the possibility of a seizure. When I see her, she is tremulous and speaks with a quivering voice which is almost unintelligible. She seems to respond to questions appropriately, however. She denies any chest discomfort or palpitations. She is not aware of any previous cardiac problems. PAST MEDICAL HISTORY: 1. Bipolar disorder with recent marlen/psychosis. 2. Hypertension. 3. Recent metabolic encephalopathy and acute on chronic renal dysfunction. 4. Recent febrile illness with associated evidence of urinary tract infection as well as tested positive for influenza B last month. 5. Gastroesophageal reflux disease. PAST SURGICAL HISTORY: Hip surgery with edlicia placement. ALLERGIES: She has no known drug allergies. MEDICATIONS: As listed. SOCIAL HISTORY: She is and retired. She lives with her sister. She does not smoke nor use alcohol. FAMILY HISTORY: Negative for premature coronary disease. There is family history of coronary disease with older age of clinical onset. REVIEW OF SYSTEMS: Pulmonary: Noncontributory beyond history of present illness. Gastrointestinal: Noncontributory beyond history of present illness. Constitutional: Noncontributory beyond history present illness. Remainder of review of systems noncontributory beyond history present illness with 14 total systems reviewed. PHYSICAL EXAMINATION: General: This is an older white female in no distress. She is persistently with mild tremulousness and a tremulous voice. She has a wide open stare. Vital Signs: Blood pressure 159/86, heart rate 84, oxygen saturation 94 to 95 percent on room air. HEENT: Extraocular movement appear to be intact. Mucous membranes are moist. Neck: Supple. There is no significant jugular venous distention. No carotid bruits. Chest: Clear to auscultation bilaterally. Cardiac: Reveals a regular rate and rhythm without appreciable murmur or gallop. Abdomen: Soft. Bowel sounds normal. Extremities: Without edema. PERTINENT DATA: Twelve lead EKG demonstrates baseline artifact, normal sinus rhythm and mild nonspecific T-wave abnormality. LABORATORY DATA: Includes white blood cell count of 7.9, hematocrit 41.9, hemoglobin 13.3, platelet count 116,000. Sodium 151, potassium 4.0, chloride 117, carbon dioxide 23, BUN 30, creatinine 1.1, glucose 95. Troponin T high-sensitivity 34, CPK 116. cc: Mark Su MD
[2020-03-22] MEDS: ROCEPHIN 1 GM in NS 50 ML IV SCH (16:09)
--- NOTE | 2020-03-22 17:04 | PROGRESS NOTE ---
DATE: 03/22/2020 INTERVAL HISTORY: Ms Oconnor was admitted from [facility] for fever and altered mental status, they supposedly been treating her for urinary tract infection with antibiotics which was not improving. Her mental status also did not improve so she was brought to the hospital. No acute overnight events. SUBJECTIVE: She exhibits mutism and is not able to participate in the history meaningfully. Often times when I ask her if she had any chest pain, shortness of breath or palpitation she said no. VITALS: She had fever on presentation of 100.1. Since then she has not had any fever. She is not tachycardic on my evaluation. Her respiratory rate is normal. Her blood pressure is also acceptable. She is breathing well on room air. PHYSICAL EXAMINATION: Oral cavity is dry. Air entry bilaterally equal. No wheeze, rhonchi, crackles. S1, S2 normal. No murmur, rub, or gallop.Abdomen: Soft, nontender. She does not have any lower extremity edema or jugular venous distention. She has prominent hirsutism. She has right-sided ptosis but extraocular movements appear equal both sides of the midline. Her pupils are bilaterally equal reacting to light. She has generalized bilateral upper extremity and lower extremity tremor. Her tone appears normal without any cogwheeling. LABS: Suggestive of hypernatremia, hyperchloremia. She has elevated BUN and creatinine, BUN of 30, creatinine 1.5, sodium 151, hemoglobin 13.3. Her TSH was normal. Lactate has been normal. Blood culture, urine culture in lab. Her EKG had normal sinus rhythm with tachycardia. ASSESSMENT AND PLAN: 1. Acute encephalopathy likely metabolic due to hypernatremia, hyperchloremia and acute kidney injury. I will resuscitate her with intravenous fluids and follow up with electrolytes. Her head CT was unremarkable. 2. Recent episode of acute Proteus urinary tract infection a week ago. Her Proteus was sensitive to Septra, cefazolin. I will keep her intravenous ceftriaxone until I get the final blood culture data. 3. Reported episodes of supraventricular tachycardia. However there is no chart or ECG tracing to compare. EKG in morning time had sinus tachycardia. I will follow up echocardiogram results. Telemetry has what looks like artifact from her tremors. 4. Reported history of fever, it was 1 time episode of 100.1. I do not have any clear etiology, will follow up with blood culture data. There is no reported seizure episode. I will continue to monitor. 5. History of schizoaffective disorder. I will resume her Depakote. DISPOSITION: Continue to monitor patient inside the hospital. Plan of care discussed with Ms. Oconnor. Her questions have been satisfactorily answered though I do not think she understands. cc: Jam Naqvi MD MTDD
--- NOTE | 2020-03-22 17:36 | ECHO REPORT ---
ORDER DATE: 03/22/2020 INTERPRETING PHYSICIAN: Syd Pederson MD. REQUESTING PHYSICIAN: Mark Su MD. CLINICAL INDICATIONS: A 64-year-old female with supraventricular tachycardia. M-MODE MEASUREMENTS: Left ventricle end diastole: 4.2 cm. Left ventricle end systole: 2.0 cm. Posterior wall: 1.9 cm. Interventricular septum: 1.9 cm. Left atrium: 3.2 cm. Aortic root: 2.8 cm. SUMMARY OF 2-DIMENSIONAL IMAGIN. The left ventricular function is normal. Ejection fraction estimated at 55-60%. No wall motion abnormality is noted. 2. Right ventricle appears to be normal. 3. Right-sided chamber size normal. 4. Left atrium is unremarkable. 5. There is no pericardial effusion. 6. Aortic valve is normal. Color flow mapping unremarkable. 7. Mitral valve is normal. Color flow mapping unremarkable. 8. Pulse wave Doppler of mitral inflow shows reversal of the E/A ratio. 9. Tissue Doppler of septal and lateral mitral annulus was not properly evaluated. 10.The pulmonary valve is difficult to see. Color flow pattern is unremarkable. 11.Tricuspid valve looks unremarkable. Pulmonary pressure is normal. 12.There is no pericardial effusion, masses or thrombus. Clinical correlation is recommended. The study was very difficult; the patient was uncooperative. cc: MD Mark Arriola MD
[2020-03-22] MEDS: TYLENOL PO PRN (17:39)
[2020-03-22] MEDS: D5W 1,000 ML IV SCH (17:39)
[2020-03-22] MEDS: LOPRESSOR PO SCH ×2 (17:48→21:11)
[2020-03-22] MEDS ORDERED: DEPAKOTE SPRINKLE PO SCH (21:00)
[2020-03-23] MEDS: ATIVAN IV PRN (00:45)
[2020-03-23] MEDS: D5W 1,000 ML IV SCH ×2 (06:35→20:47)
[2020-03-23 06:53] LABS: EOS# 0.09 X1000 (0.0-0.7); EOS% 1.4 % (0.0-10.0); HEMATOCRIT 43.5 % (37.0-47.0); IMM GRAN# 0.04 X1000 (0.0-0.04); IMM GRAN% 0.6 % (0.0-0.5); LYMPH# 0.74 X1000 (1.2-3.4); LYMPH% 11.2 % (20.5-51.1); MCH 32.4 PG (27-31); MCHC 32.2 g/dL (33-37); MCV 100.7 FL (81-99); MONO# 0.56 X1000 (0.11-0.59); MONO% 8.5 % (1.7-9.3); MPV 9.9 FL (7.4-10.4); NEUT# 5.18 X1000 (1.4-6.5); NEUT% 78.3 % (42.2-75.2); PLT 107 X1000 (130-400); RBC 4.32 XMIL (4.2-5.4); RDW 12.8 % (11.5-14.5); WBC 6.61 X1000 (4.8-10.8)
--- NOTE | 2020-03-23 07:17 | EKG Report ---
Test Performed on : 03/21/2020 7:33:39 PM Test Reason : Tachycardia Blood Pressure : / mmHG Vent. Rate : 075 BPM Atrial Rate : 267 BPM P-R Int : 000 ms QRS Dur : 070 ms QT Int : 398 ms P-R-T Axes : 000 -27 -45 degrees QTc Int : 444 ms Accelerated Junctional rhythm. Septal infarct , age undetermined ST & T wave abnormality, consider anterior ischemia Abnormal ECG When compared with ECG of 21-MAR-2020 18:38, (Unconfirmed) Junctional rhythm. has replaced Sinus rhythm. Septal infarct is now present ST now depressed in Inferior leads ST more depressed in Anterior leads Unconfirmed Result
[2020-03-23 07:18] LABS: CALCIUM 9.2 mg/dL (8.8-10.2); POTASSIUM 3.7 mmol/L (3.5-5.1)
[2020-03-23] MEDS ORDERED: PEPCID PO PRN (07:28)
[2020-03-23] MEDS ORDERED: MILK OF MAGNESIA PO PRN (07:28)
[2020-03-23] MEDS: DEPAKENE LIQUID PO SCH ×2 (08:27→20:52)
[2020-03-23] MEDS: LOPRESSOR PO SCH ×2 (12:23→20:52)
--- NOTE | 2020-03-23 13:51 | PROGRESS NOTE ---
DATE: 03/23/2020 INTERVAL HISTORY: Ms. Oconnor had a temperature of 99.9 degrees yesterday. She remained tachycardic. Her blood pressure was stable. The telemetry suggested artifact when she had reported tachycardia episode yesterday. Her flu test was negative. Her electrolytes are improving. SUBJECTIVE: Ms Oconnor remains in a state where she occasionally mumbles. When I asked her if she had any chest pain, she told me no in a sort of singing manner. I am not sure how reliable her history is at the moment. VITAL SIGNS: Temperature 98.6 degrees, pulse 105, respiratory 17, blood pressure 135/89. She is saturating 90% on 2 L nasal cannula. PHYSICAL EXAMINATION: General: Not in any acute distress. HEENT: Oral cavity is moist. Lungs: Air entry bilaterally equal. No wheeze, rhonchi, or crackles. Cardiovascular: S1, S2 normal. Tachycardic. No murmur, rub or gallop. Abdomen: Soft, nontender. Neck: No jugular venous distention. Extremity: No lower extremities edema. Neurologic: She is alert. She could tell me her name. She could not tell me that she was in the hospital or she is not oriented with the situation. She has a right-sided ptosis, but extraocular movements are intact bilaterally. She has hirsutism. Pupils are bilaterally equal, reacting to light. She has generalized tremors. I could not elicit any cogwheel rigidity. Her reflexes are 2+ bilateral knee jerks. Her tone appears normal. She is moving bilateral upper extremities above ground level. She is wiggling her toes bilaterally. LABORATORY DATA: Suggest WBC 6.6, hemoglobin 14, platelet 107,000. Sodium 149, chloride 113, BUN 27, and creatinine 1. MICROBIOLOGY: No positive microbiological data. DIAGNOSTIC DATA: Echocardiogram yesterday had ejection fraction of 55 to 60 percent without any regional wall motion abnormality. ASSESSMENT AND PLAN: 1. Acute encephalopathy. This is partially metabolic due to her electrolyte disturbance with acute kidney injury on her baseline history of psychiatric disorder. Head CT was unremarkable. 2. Acute Proteus urinary tract infection, though recent urine culture is unremarkable. Considering her fever, I will keep her on intravenous ceftriaxone. 3. Hypernatremia, hyperchloremia and acute kidney injury. Continue D5- containing intravenous fluids and follow up electrolytes daily. 4. Reported episode of supraventricular tachycardia, likely because of artifact. Echocardiogram was unremarkable. 5. She has not had any definitive fever in the last 24 hours, except mild elevation of temperature. I will continue to monitor her. Yesterday, lactic acid and CPK levels were normal suggestive that it was unlikely to be related to seizure when she presented. 6. History of schizoaffective disorder. The patient has been at [facility] since last 4 weeks or so. I will resume her Depakote and fluphenazine with a close eye over extra-pyramidal symptoms. DISPOSITION: Continue to monitor patient on the medical floor with telemetry. Plan of care discussed with the patient but I do not think she understands it completely. I tried to reach out to her sister and I have left a voice message. I will keep her on mechanical soft diet under strict supervision. cc: Jam Naqvi MD MTDD
[2020-03-23] MEDS: ROCEPHIN 1 GM in NS 50 ML IV SCH (16:05)
[2020-03-23] MEDS: FISH OIL CONCENTRATE PO SCH (20:52)
[2020-03-23] MEDS: NON-FORMULARY MED PO SCH (20:55)
[2020-03-23] MEDS ORDERED: PROLIXIN PO SCH (21:00)
[2020-03-24 07:33] LABS: CALCIUM 8.5 mg/dL (8.8-10.2); CREATININE 1.1 mg/dL (0.5-0.9); POTASSIUM 3.4 mmol/L (3.5-5.1)
[2020-03-24] MEDS: DEPAKENE LIQUID PO SCH ×2 (08:53→20:14)
[2020-03-24] MEDS: ATIVAN IV PRN ×3 (08:53→20:15)
[2020-03-24] MEDS: LOPRESSOR PO SCH ×2 (08:54→20:15)
[2020-03-24] MEDS: D5W 1,000 ML IV SCH (12:21)
[2020-03-24] MEDS: KLOR-CON PO SCH ×2 (12:21→15:15)
--- NOTE | 2020-03-24 13:36 | PROGRESS NOTE ---
DATE: 03/24/2020 INTERVAL HISTORY: She was reported to have several episodes of supraventricular tachycardia, and I asked for the telemetry tracing and it appeared like artifact. EKG had sinus tachycardia. SUBJECTIVE: Ms. Oconnor appears much more awake and alert today. She was trying to eat her meal. She denies any chest pain or shortness of breath. However, history is limited considering her psychiatric illness. OBJECTIVE: Vital Signs: Temperature 98.5 degrees, pulse 70, respiratory rate 18, blood pressure 160/110. She is saturating 98% on room air. General: Not in acute distress. No pallor, cyanosis, clubbing, or icterus. HEENT: She does have mild right-sided eyelid droop, but pupils are equal, reacting to light. Lungs: Air entry bilaterally equal. No wheeze, rhonchi, crackles. Cardiovascular: S1, S2 normal. No murmur, rub, or gallop. Abdomen: Soft, nontender. Neck: No jugular venous distention. Extremities: She does not have any lower extremity edema. Neurologic: Extraocular movements intact both sides of the midline. She has hirsutism. She has generalized tremors. She has scanning speech without any cogwheel rigidity. She was able to raise both upper extremities above ground level. She was able to wiggle toes bilateral lower extremities. She was not able to lift lower extremity above ground level. LABORATORY DATA: Suggestive of no CBC. BMP suggestive of potassium of 3.4, currently being repleted. BUN of 24, creatinine 1.1, blood glucose is 123. Her calcium is 8.5. Influenza screen, blood culture and urine culture have been negative. ASSESSMENT AND PLAN: 1. Acute encephalopathy appears to be improving as improvement in her electrolytes and kidney function. She has baseline psychiatric disorder. Head CT was unremarkable. 2. Acute Proteus urinary tract infection recently. Her most recent urine culture is negative. I will treat her with intravenous ceftriaxone considering her fever episode on presentation. She hasn't had a fever >48 hours. 3. Hypernatremia, hyperchloremia and acute kidney injury due to intravascular volume depletion due to poor oral intake. Continue intravenous fluids. 4. Reported history of supraventricular tachycardia. It could be an artifact. There was no definitive documentation of it. Echocardiogram was unremarkable. I will keep her on metoprolol to address her hypertension as well. 5. History of schizoaffective disorder. The patient today states she has had manic depression in the past. I reviewed the documents from [facility], and accordingly, I will keep her on Depakote and fluphenazine. DISPOSITION: If the patient does not have any fever in the coming 24 hours, my plan is to re- consult [facility] and transfer her for treatment for her psychiatric illness. Ms Oconnor is in agreement with the plan, though she may not be entirely reliable at the moment. I tried to reach out to her sister to gather further historical data, but she did not cotton picker. cc: Jam Naqvi MD MTDD
[2020-03-24] MEDS: ROCEPHIN 1 GM in NS 50 ML IV SCH (15:16)
[2020-03-24] MEDS: NON-FORMULARY MED PO SCH (20:14)
[2020-03-24] MEDS: FISH OIL CONCENTRATE PO SCH (20:14)
[2020-03-25] MEDS: D5W 1,000 ML IV SCH (00:56)
--- NOTE | 2020-03-25 06:35 | EKG Report ---
Test Performed on : 03/24/2020 03:28:10 AM Test Reason : tachycardia/ pos arrythmia Blood Pressure : / mmHG Vent. Rate : 085 BPM Atrial Rate : 085 BPM P-R Int : 124 ms QRS Dur : 084 ms QT Int : 356 ms P-R-T Axes : 063 -19 026 degrees QTc Int : 423 ms Normal sinus rhythm. T wave abnormality, consider anterolateral ischemia Abnormal ECG When compared with ECG of 24-MAR-2020 03:19, (Unconfirmed) ST no longer depressed in Inferior leads Confirmed by Lukasz LARA, Kuldip Morataya ([id number]) on 03/25/2020 4:21:48 PM
[2020-03-25 07:52] LABS: BASO# 0.02 X1000 (0.0-0.2); BASO% 0.2 % (0.0-0.8); EOS# 0.29 X1000 (0.0-0.7); EOS% 3.2 % (0.0-10.0); HEMATOCRIT 43.3 % (37.0-47.0); HEMOGLOBIN 14.2 g/dL (12.0-16.0); IMM GRAN# 0.04 X1000 (0.0-0.04); IMM GRAN% 0.4 % (0.0-0.5); LYMPH# 1.13 X1000 (1.2-3.4); LYMPH% 12.5 % (20.5-51.1); MCH 32.3 PG (27-31); MCHC 32.8 g/dL (33-37); MCV 98.4 FL (81-99); MONO# 0.66 X1000 (0.11-0.59); MONO% 7.3 % (1.7-9.3); MPV 10.1 FL (7.4-10.4); NEUT# 6.88 X1000 (1.4-6.5); NEUT% 76.4 % (42.2-75.2); PLT 106 X1000 (130-400); RDW 12.6 % (11.5-14.5); WBC 9.02 X1000 (4.8-10.8)
[2020-03-25 08:05] LABS: CALCIUM 8.9 mg/dL (8.8-10.2); POTASSIUM 4.1 mmol/L (3.5-5.1)
[2020-03-25] MEDS: DEPAKENE LIQUID PO SCH ×2 (09:03→21:04)
[2020-03-25] MEDS: LOPRESSOR PO SCH ×2 (09:03→21:04)
[2020-03-25] MEDS ORDERED: ROCEPHIN 1 GM in NS 50 ML IV ONE (12:40)
--- NOTE | 2020-03-25 14:12 | PROGRESS NOTE ---
DATE: 03/25/2020 INTERVAL HISTORY: No acute events overnight. She has not had any fever episode. SUBJECTIVE: Ms. Oconnor keeps on mumbling. Does not appear in any acute distress. She is alert. She is answering all questions in a mumbling tone. VITALS: Temperature 97.8 degrees, pulse 70, respiratory rate 16, blood pressure 118/61, saturating 93% on room air. PHYSICAL EXAMINATION: General: Ms. Oconnor is not in acute distress. Mouth: Oral cavity is moist. Lungs: Air entry bilaterally equal. No wheeze, rhonchi, crackles. Cardiovascular: S1, S2 normal. No murmur, rub, or gallop. Abdomen: Soft, nontender. Neck: No jugular venous distention. Extremities: She does not have lower extremity edema. Neurologic: She appears to have prominent hirsutism, right-sided ptosis and scanning speech without any cogwheel. Her muscle tone is equal and adequate bilaterally. She is moving both upper extremities above ground level. She is not moving lower extremities on command, though she is able to wiggle her toes. LABS: WBC 9.0, hemoglobin 14.2, platelet 106. She has BUN of 24, creatinine 1. Her sodium and chloride are normal. MICROBIOLOGY: No positive data. X-RAYS: Echocardiogram had normal ejection fraction. ASSESSMENT AND PLAN: 1. Acute encephalopathy on top of her baseline, likely schizoaffective disorder, appears to have improved. Her electrolyte abnormality, kidney dysfunction, suspected urinary tract infection could have contributed to it. She is status post intravenous fluid resuscitation. Head CT was unremarkable. 2. Acute Proteus urinary tract infection in February 2020. She was sent over because of persistent episodes of fever. However, currently her urine culture did not show any growth, likely due to outpatient antibiotic. She has received intravenous ceftriaxone, and has not had any fever episodes for more than almost 72 hours now. My plan is to change her antibiotics to oral Keflex for another 5 to 7 days. 3. Hyponatremia, hyperchloremia and mild kidney dysfunction due to intravascular volume depletion due to poor oral intake, now resolved. I will stop intravenous fluids. 4. Reported history of supraventricular tachycardia. This is likely artifact as on my review of multiple telemetry strips. Considering her hypertension, I will keep her on metoprolol. Echocardiogram was unremarkable. 5. History of schizoaffective disorder. I will continue her on Depakote and fluphenazine. DISPOSITION: The patient has become medically ready for discharge. We will consult [facility] today for continuation of further care. I have not been able to reach out to patient's sister to update her about patient's course. ADDENDUM: I talked with [facility] provider. Currently they don't have any beds available. They have marked her in their list. I discussed with the nurse about again calling [facility] on 03/26 and request evaluation for inpatient psychiatric care if their bed situation changes. cc: Jam Naqvi MD MTDD
--- NOTE | 2020-03-25 19:02 | Diag Imaging Result Doc PS360 ---
EXAM: CHEST-PORTABLE INDICATION: Placement at [facility] TECHNIQUE: One view COMPARISON: 03/21/2020 FINDINGS: The lungs are grossly clear. There is no discrete pleural fluid collection or pneumothorax. The cardiomediastinal silhouette and central vasculature are grossly unremarkable. IMPRESSION: No evidence of acute pathology by plain radiograph. Electronically signed by Augustus Wynne 03/25/2020 6:59 PM
[2020-03-25] MEDS: FISH OIL CONCENTRATE PO SCH (21:04)
[2020-03-25] MEDS: NON-FORMULARY MED PO SCH (21:04)
[2020-03-26 00:08] VITALS: BP 161/80
[2020-03-26] MEDS ORDERED: KEFLEX PO SCH (09:00)
--- NOTE | 2020-03-26 22:28 | DISCHARGE SUMMARY ---
ADMISSION DATE: 03/21/2020 DISCHARGE DATE: 03/26/2020 DISCHARGE DISPOSITION: [facility]. DISCHARGE CONDITION: Hemodynamically stable. Ms. Oconnor does not have any more fever episode. She appears alert. She has been exhibiting aggressive behavior. DISCHARGE DIAGNOSES: 1. Acute encephalopathy due to electrolyte abnormalities, kidney dysfunction and suspected urinary tract infection. 2. Acute Proteus urinary tract infection in February 2020. 3. Fever likely due to acute urinary tract infection. 4. Hypernatremia, hyperchloremia, mild kidney dysfunction due to intravascular volume depletion. 5. Schizoaffective disorder. 6. Chronic gastroesophageal reflux disease. 7. Essential hypertension. DISCHARGE MEDICATIONS: 1. [place]-3 fatty acids 1 capsule at bedtime. 2. Fluphenazine 2.5 mg at nighttime. 3. Famotidine 10 mg daily. 4. Keflex 500 mg every 12 hours for 5 days. 5. Lorazepam 1 mg IV every 2 hours as needed for anxiety. 6. Milk of magnesia 30 mL daily as needed for constipation. 7. Metoprolol tartrate 25 mg b.i.d. 8. Valproic acid 250 mg b.i.d. VITALS: At the time of discharge temperature 98.2 degrees, pulse 89, respiratory 19, blood pressure 160/80, she is saturating 96% on room air . PHYSICAL EXAMINATION: At the time of discharge oral cavity was moist. Air entry bilaterally equal. No wheeze, rhonchi, crackles. S1, S2 normal. No gallop. Abdomen: Soft, nontender. No lower extremity edema. She is alert, she was oriented to herself. She had scanning speech. She was following simple commands. Intermittently she was exhibiting violent behavior like throwing off food tray. LABS: At the time of discharge she does not have leukocytosis. WBC is 9000, hemoglobin 14.2, platelet 106,000. Sodium 140 which improved from 152 on presentation, chloride 107, BUN 24, creatinine 1. Valproic acid level was 27.5. Urine toxicology was negative. Microbiology, influenza screen, blood culture and urine culture were negative. IMAGING: Head CT did not have an acute intracranial process. There was stable mild periventricular white matter changes. Echocardiogram had ejection fraction of 55 to 60 percent without any regional wall motion abnormality. Electrocardiogram had sinus tachycardia, left axis deviation, T-wave abnormality. HOSPITAL COURSE SUMMARY: Ms. Oconnor is 64 years old lady with past medical history of schizoaffective disorder who was initially admitted to [facility] for her psychiatric illness between February 22 and March 18 and later on was admitted to [facility] between March 19 and March 21 for treatment of UTI. On March 21 Ms Oconnor was discharged back to [facility] for further management of her psychiatric illness. However she was sent back to the emergency room for reported episode of fever and suspected supraventricular tachycardia. While inside [facility] Ms. Oconnor was started on D5 water for her hypernatremia, hyperchloremia, kidney dysfunction as well as intravenous antibiotics for suspected UTI. Her head CT was unremarkable. After 72 hours of treatment her electrolytes had normalized and she did not have any more fever episode so it was decided to discharge her back to [facility] on oral antibiotics. As far as reported episode of supraventricular tachycardia goes, it was thought to be related to artifact because of patient's tremor. Multiple EKGs during hospital admission only had revealed normal sinus rhythm. However considering patient's hypertension, metoprolol was added. I had tried to reach out to patient's sister to inform about patient's clinical care, however I could not reach out to her. TIME SPENT: 25 minutes. cc: Jam Naqvi MD MTDD
== END 2020-03-26 01:10 | DRG 640 ==
LOC: P.ED 17:22 → SUATTDRO 20:15 → INTOOBSV 20:15 → 3N 20:15 → OBSVTOIN 20:15 → 3N 21:20
PROVIDERS: ATTEND Internal Medicine